=== PATIENT | male | born 1965 ===

== ENCOUNTER 2017-07-18 13:56 | Emergency (ER) | payer MEDICAID ==
[2017-07-18 14:10] VITALS: BP 119/73; RESP 18; O2SAT 97
[2017-07-18] MEDS ORDERED: Sodium Chloride 0.9% 1,000 ML IV STA ×2 (14:33→15:56)
--- NOTE | 2017-07-18 15:06 | ED PDOC ---
HPI: General Adult Time Seen by Provider: 07/18/17 14:20 Chief Complaint (Nursing): Flu-like Symptoms Chief Complaint (Provider): Sore throat, fever History Per: Patient History/Exam Limitations: no limitations Onset/Duration Of Symptoms: Days (1) Have you had recent travel within the past 21 days to any of the following countries: [place], [place], [place] or [place]?: No Current Symptoms Are (Timing): Still Present Additional History Per: Patient Additional Complaint(s): The patient is a 51yo male, presents to the ED for evaluation of cough, sore throat, fever, chills for the past day. Patient reports he feels weak and has not taken any medication for his symptoms. Patient denies any associated vomiting, diarrhea, known sick contacts, recent travels. He denies taking any medications daily at home. Patient offers no additional medical complaints. Past Medical History Reviewed: Historical Data, Nursing Documentation, Vital Signs Vital Signs: Last Vital Signs Temp 101.2 F H 07/18/17 16:13 Pulse 90 07/18/17 16:13 Resp 18 07/18/17 14:07 BP 119/73 07/18/17 14:07 Pulse Ox 97 07/18/17 15:08 - Medical History PMH: No Chronic Diseases - Surgical History Surgical History: No Surg Hx - Family History Family History: States: Unknown Family Hx - Home Medications Home Medications: Ambulatory Orders Medication Instructions Recorded Amoxicillin/Potassium Clav 1 tab PO Q8 #21 tab 11/24/15 [Augmentin 500 mg-125 mg] Guaifenesin [Mucinex] 1,200 mg PO BID #14 ter 11/24/15 Acetaminophen [Acetaminophen Extra 2 tab PO Q6 PRN #24 tablet 07/18/17 Strength] Ibuprofen [Motrin] 600 mg PO Q8 PRN #21 tab 07/18/17 Promethazine/Codeine 5 ml PO Q12 PRN #100 ml 07/18/17 [Codeine/Promethazine 10 MG/5 Ml-6.25 MG/5 Ml] - Allergies Allergies/Adverse Reactions: Allergies Allergy/AdvReac Type Severity Reaction Status Date / Time No Known Allergies Allergy Verified 06/20/16 17:42 Review of Systems ROS Statement: Except As Marked, All Systems Reviewed And Found Negative Constitutional: Positive for: Fever, Chills ENT: Positive for: Throat Pain Gastrointestinal: Negative for: Nausea, Vomiting, Diarrhea Physical Exam - Reviewed Nursing Documentation Reviewed: Yes Vital Signs Reviewed: Yes - Physical Exam Appears: Positive for: Well, Non-toxic, No Acute Distress Head Exam: Positive for: ATRAUMATIC, NORMAL INSPECTION, NORMOCEPHALIC Skin: Positive for: Normal Color, Warm Eye Exam: Positive for: Normal appearance, EOMI, PERRL ENT: Positive for: Pharyngeal Erythema Neck: Positive for: Normal, Supple Cardiovascular/Chest: Positive for: Regular Rate, Rhythm Respiratory: Positive for: Normal Breath Sounds. Negative for: Respiratory Distress Neurologic/Psych: Positive for: Alert, Oriented. Negative for: Motor/Sensory Deficits - Laboratory Results Result Diagrams: 07/18/17 15:02 07/18/17 15:02 - ECG O2 Sat by Pulse Oximetry: 97 (RA) Pulse Ox Interpretation: Normal - Progress ED Course And Treament: cxr: no signs of [place] influenza a/b neg Patient refused strep test NS 1 liter wide open x 2 liters acetaminophen 975mg x 1 ddose repeat temp 101.2 motrin 600mg x 1 dose Medical Decision Making Medical Decision Making: Time: 1430 Impression: URI Plan: -- Labs -- CXR -- Rapid strep -- Rapid Flu Reassess Scribe Attestation: Documented by Barbara Carter acting as a scribe for IDALIA Kaminski Provider Attestation: All medical record entries made by the Scribe were at my direction and personally dictated by me. I have reviewed the chart and agree that the record accurately reflects my personal performance of the history, physical exam, medical decision making, and the department course for this patient. I have also personally directed, reviewed, and agree with the discharge instructions and disposition. Disposition - Clinical Impression Clinical Impression: Influenza-like symptoms - Patient ED Disposition Is Patient to be Admitted: No - Disposition Disposition: Routine/Home Disposition Time: 16:47 Condition: FAIR Additional Instructions: F/U WITH PMD IN 2 DAYS Prescriptions: Acetaminophen [Acetaminophen Extra Strength] 2 tab PO Q6 PRN #24 tablet PRN Reason: Fever >100.4 F Ibuprofen [Motrin] 600 mg PO Q8 PRN #21 tab PRN Reason: Fever >100.4 F Promethazine/Codeine [Codeine/Promethazine 10 MG/5 Ml-6.25 MG/5 Ml] 5 ml PO Q12 PRN #100 ml PRN Reason: Cough Instructions: Viral Syndrome (ED) Forms: [employer] ([place]), [facility] ED School/Work Excuse
[2017-07-18 15:18] LABS: BLOOD UREA NITROGEN 16 mg/dl (9-20); CALCIUM 8.9 mg/dL (8.4-10.2); CARBON DIOXIDE 23 mmol/L (22-30); CHLORIDE 102 mmol/L (98-107); GFR AFRICAN-AMERICAN > 60; GLUCOSE,RANDOM 103 mg/dL (75-110); SODIUM 134 mmol/l (132-148)
[2017-07-18 15:20] LABS: BASO % 0.6 % (0.0-2.0); EOS % 0.7 % (0.0-4.0); HEMATOCRIT 41.5 % (35.0-51.0); LYMPH # 0.5 K/uL (1.0-4.3); LYMPH % 13.8 % (20.0-40.0); MEAN CELL VOLUME 85.6 fl (80.0-94.0); MEAN CORPUSCULAR HEMOGLOBIN 30.6 pg (27.0-31.0); MEAN CORPUSCULAR HGB CONC 35.7 g/dL (33.0-37.0); MEAN PLATELET VOLUME 8.2 fl (7.2-11.7); MONO # 0.5 K/uL (0.0-0.8); MONO % 16.7 % (0.0-10.0); NEUT # 2.2 K/uL (1.8-7.0); NEUT % 68.2 % (50.0-75.0); NRBC % 0.1 % (0.0-0.0); RED CELL DISTRIBUTION WIDTH 12.2 % (11.5-14.5); WHITE BLOOD COUNT 3.3 K/uL (4.8-10.8)
[2017-07-18 15:21] LABS: POTASSIUM 4.9 MMOL/L (3.6-5.0)
--- NOTE | 2017-07-18 15:41 | RAD ---
HISTORY: cough COMPARISON: No prior. TECHNIQUE: Chest PA and lateral FINDINGS: LUNGS: The lungs are well inflated and clear. PLEURA: No significant pleural effusion identified. No pneumothorax apparent. CARDIOVASCULAR: Normal. OSSEOUS STRUCTURES: No significant abnormalities. VISUALIZED UPPER ABDOMEN: Normal. OTHER FINDINGS: None. IMPRESSION: No active pulmonary disease.
[2017-07-18 16:13] VITALS: PULSE 90
[2017-07-18 17:06] VITALS: TEMP 99.4
== END 2017-07-18 17:09 | disposition home or self-care (01) ==
LOC: H.ER 13:56
DX: B34.9 Viral infection, unspecified (principal)
CPT/HCPCS: 71020; 80048; 85025; 87804; 96360; 96361; 99283; J7040

== ENCOUNTER 2017-10-05 09:19 | Inpatient (IN) | payer MEDICAID ==
[2017-10-05 09:22] VITALS: BMI 30.4
[2017-10-05] MEDS ORDERED: Sodium Chloride 0.9% 1,000 ML IV STA (09:46)
--- NOTE | 2017-10-05 10:02 | ED PDOC ---
HPI: Psych/Substance Abuse Time Seen by Provider: 10/05/17 09:24 Chief Complaint (Nursing): Substance Abuse Chief Complaint (Provider): Overdose History Per: Patient, EMS History/Exam Limitations: no limitations Onset/Duration Of Symptoms: Days (today) Current Symptoms Are (Timing): Still Present Additional Complaint(s): Pt. found slumped over as seen by the girlfriend who saw it on a video camera. Police called and gave pt. 2 narcan inhaled and oxygen. Pt. responded right away and is fully communicative. Pt. states he did 2 bags of heroine. Pt. states he is not suicidal or homicidal. Has nausea and a slight frontal headache. No numbness, tingles, neck pain, weakness, dizziness, abd pain, chest pain. No fever. Has slight nausea. No other drugs or etoh. Past Medical History Reviewed: Nursing Documentation, Vital Signs Vital Signs: Last Vital Signs Temp 97 F L 10/05/17 09:21 Pulse 91 H 10/05/17 09:21 Resp BP 126/74 10/05/17 09:21 Pulse Ox 98 10/05/17 09:21 - Medical History PMH: No Chronic Diseases Denies: Chronic Kidney Disease - Surgical History Surgical History: No Surg Hx - Family History Family History: States: Unknown Family Hx - Living Arrangements Living Arrangements: With Family - Social History Alcohol: None Drugs: Opiates - Home Medications Home Medications: Ambulatory Orders Medication Instructions Recorded Guaifenesin [Mucinex] 1,200 mg PO BID #14 ter 11/24/15 Acetaminophen [Acetaminophen Extra 2 tab PO Q6 PRN #24 tablet 07/18/17 Strength] Promethazine/Codeine 5 ml PO Q12 PRN #100 ml 07/18/17 [Phenergan/Codeine Oral Syrup] Moxifloxacin [Avelox] 400 mg PO DAILY #5 tab 07/24/17 - Allergies Allergies/Adverse Reactions: Allergies Allergy/AdvReac Type Severity Reaction Status Date / Time No Known Allergies Allergy Verified 10/05/17 09:23 Review of Systems ROS Statement: Except As Marked, All Systems Reviewed And Found Negative Gastrointestinal: Positive for: Nausea Neurological: Positive for: Headache Physical Exam - Reviewed Nursing Documentation Reviewed: Yes Vital Signs Reviewed: Yes - Physical Exam Appears: Positive for: Non-toxic, No Acute Distress Head Exam: Positive for: ATRAUMATIC, NORMAL INSPECTION, NORMOCEPHALIC Skin: Positive for: Normal Color, Warm, DRY Eye Exam: Positive for: EOMI, Normal appearance, PERRL ENT: Positive for: Normal ENT Inspection Neck: Positive for: Normal, Painless ROM Cardiovascular/Chest: Positive for: Regular Rate, Rhythm Respiratory: Positive for: CNT, Normal Breath Sounds Gastrointestinal/Abdominal: Positive for: Normal Exam, Bowel Sounds, Soft. Negative for: Tenderness Back: Positive for: Normal Inspection. Negative for: L CVA Tenderness, R CVA Tenderness Extremity: Positive for: Normal ROM. Negative for: Tenderness, Pedal Edema Neurologic/Psych: Positive for: Alert, college administrator II-XII, Oriented. Negative for: Motor/Sensory Deficits, Aphasia, Facial Droop - Laboratory Results Result Diagrams: 10/05/17 10:23 10/05/17 10:23 Interpretation Of Abn Labs: opiate pos - ECG ECG: Positive for: Interpreted By Me, Viewed By Me ECG Rhythm: Positive for: Normal QRS, Normal ST Segment, Sinus Rhythm O2 Sat by Pulse Oximetry: 98 Pulse Ox Interpretation: Normal - Progress ED Course And Treament: 1111: Stable. Crisis saw pt. Will admit. Pt. is medically stable for psych eval. Disposition - Clinical Impression Clinical Impression: Depression, Heroin abuse - Patient ED Disposition Is Patient to be Admitted: Yes Counseled Patient/Family Regarding: Studies Performed, Diagnosis - Disposition Disposition Time: 11:12 Condition: FAIR - Pt Status Changed To: Hospital Disposition Of: Inpatient - Admit Certification Admit to Inpatient:: After my assessment, the patient will require hospitalization for at least two midnights. This is because of the severity of symptoms shown, intensity of services needed, and/or the medical risk in this patient being treated as an outpatient. - POA Present On Arrival: None
[2017-10-05 10:33] LABS: BASO % 0.5 % (0.0-2.0); EOS # 0.1 K/uL (0.0-0.7); EOS % 1.5 % (0.0-4.0); HEMATOCRIT 39.4 % (35.0-51.0); LYMPH # 0.9 K/uL (1.0-4.3); LYMPH % 23.9 % (20.0-40.0); MEAN CORPUSCULAR HEMOGLOBIN 30.3 pg (27.0-31.0); MEAN CORPUSCULAR HGB CONC 34.4 g/dL (33.0-37.0); MEAN PLATELET VOLUME 7.7 fl (7.2-11.7); MONO # 0.3 K/uL (0.0-0.8); MONO % 8.2 % (0.0-10.0); NEUT # 2.4 K/uL (1.8-7.0); NEUT % 65.9 % (50.0-75.0); RED CELL DISTRIBUTION WIDTH 12.9 % (11.5-14.5); WHITE BLOOD COUNT 3.7 K/uL (4.8-10.8)
[2017-10-05 10:51] LABS: ALB/GLOB RATIO 1.1 (1.0-2.1); ALCOHOL SERUM < 10 mg/dl (0-10); ALKALINE PHOSPHATASE 51 U/L (38-126); ALT/SGPT 50 U/L (21-72); AST/SGOT 42 U/L (17-59); BILIRUBIN,TOTAL 0.5 mg/dl (0.2-1.3); BLOOD UREA NITROGEN 17 mg/dl (9-20); CALCIUM 8.4 mg/dL (8.4-10.2); CARBON DIOXIDE 25 mmol/L (22-30); CHLORIDE 104 mmol/L (98-107); GFR AFRICAN-AMERICAN > 60; GLUCOSE,RANDOM 168 mg/dL (75-110); LIPASE 103 U/L (23-300); POTASSIUM 3.6 MMOL/L (3.6-5.0); SODIUM 139 mmol/l (132-148); TOTAL PROTEIN 7.3 G/DL (6.3-8.2)
[2017-10-05 11:50] VITALS: O2SAT 100
--- NOTE | 2017-10-05 13:28 | PCM.PSYCH ---
Initial Psychiatric Evaluation - Initial Psychiatric Evaluation Type of Admission: Voluntary Chief Complaint (in patient's own words): I was depressed for a month i am having problems with my girlfriend Patient's Reaction to Hospitalization: pt signed voluntary requesting help History of Present Illness and Precipitating Events: pt with previous psychiatric diagnosis of bipolar disorder and opiate dependence , non compliant with medications or follow up reportedly pt has been feeling increasingly depressed for the past month , due to loosing his job and increasing conflict with girlfriend, pt started to have decreased sleep, decreased appetite with 7 lbs loss pt started using heroin intra nasal daily , on day of evaluation pt used two bags, found by family lost conciousness pt was brought to er for evaluation pt denied any current suicidal or homicidal ideations, denied psychotic symptoms reported using cannabis and alcohol occasionaly Past Psychiatric History - Past Psychiatric History Explanation of prior treatment: pt poor historian reported unspecified number of hospitalizations since age 11 for depression also reported multiple inpatient rehabs denied previous suicidal attempts History of Abuse: denied History of ETOH/Drug Use: occasional use of alcohol History of Family Illness: denied Pertinent Medical Hx (Current Medical&Sleep Prob, Allergies): Allergies Allergy/AdvReac Type Severity Reaction Status Date / Time No Known Allergies Allergy Verified 10/05/17 09:23 No Known Home Med 10/05/17 denied any current medical problems Mental Status Examination - Personal Presentation Personal Presentation: Looks stated age Additional comments: unkempt, poor eye contact - Affect Affect: Depressed - Motor Activity Motor Activity: Psychomotor Retardation - Reliability in Providing Information Reliability in Providing Information: Poor, due to altered mood - Mood Mood: Depressed, Anxious - Formal Thought Process Formal Thought Process: Circumstantial - Hallucinations/Delusions Additional comments: pt denied perceptual disturbances, non elicited - Obsessions/Compulsions Obsessions: No Compulsions: No - Cognitive Functions Orientation: Person, Place Sensorium: Drowsy Attention/Concentration: Easily distracted Abstract Thinking: [place] Judgement: Imparied, as evidence by: Poor judgement, Imparied, as evidence by: Lack of insight into illness Memory: Recent intact, as evidence by: Ability to recall events of the day - Risk Risk: Withdrawal, Diminished functioning - Strength & Assets Inventory Strength & Assets Inventory: Employment history - Limitations Additional comments: poor insight and poor compliance DSM 5 DX - DSM 5 DSM 5 Diagnosis: 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
[2017-10-05] MEDS ORDERED: Alum-Mag Hydrox-Simethicone Susp (30 mL) PO PRN (13:30)
[2017-10-05] MEDS ORDERED: Magnesium Hydroxide Susp 30 ml UD PO PRN (13:30)
[2017-10-05] MEDS ORDERED: DiphenhydrAMINE 50 mg/ml Inj IM PRN (13:30)
--- NOTE | 2017-10-05 14:37 | PCM.BM ---
Treatment Plan Problems - Problems identified on initial assessmt Medication nonadherence Date Initiated: 10/05/17 Time Initiated: 14:35 Assessment reference: NA Status: Active Hopelessness/Helplessness Assessment reference: NA Status: Active [place] Coping Assessment reference: NA Status: Active Treatment assets and liabiliti Patient Assests: cooperative, ADL independent, physically healthy Patient Liabilities: substance abuse - Milieu Protocol Maintain good personal hygiene: daily Encourage regular showers, daily Remind patient to perform daily oral care, daily Assist patient to perform ADL's Maintain personal safety: daily Educate patient to report safety concerns to staff, daily Monitor environment for contraband/sharps, every shift Educate patient to report safety concerns to staff, every shift Monitor environment for contraband/sharps Medication safety: Monitor for expected outcome, potential side effects: daily, every shift, Assess barriers to learning: daily, every shift, Assess readiness for medication education: daily, every shift Milieu Narrative: start pt on clonidine protocol for opiate withdrawal monitor pt for symptoms and signs of withdrawal start seroquel 100mg qhs and uptitrate gradually motivational and group therapy referral to rehab on discharge Discharge/Continuing Care - Treatment Team Participation Patient/Family/SO Statement: start pt on clonidine protocol for opiate withdrawal monitor pt for symptoms and signs of withdrawal start seroquel 100mg qhs and uptitrate gradually motivational and group therapy referral to rehab on discharge
[2017-10-05 15:17] LABS: T4 14.6 ug/dl (5.5-11.0)
[2017-10-05 15:31] LABS: THYROID STIMULATING HORMONE 4.05 mIU/ML (0.46-4.68)
--- NOTE | 2017-10-05 21:50 | CARD ---
APPROVED REPORT EKG Measurement Heart [id number] <Conclusion> Sinus rhythm with 1st degree AV block Otherwise normal ECG
[2017-10-06 07:46] LABS: CHOLESTEROL 141 mg/dL (0-199)
[2017-10-06] MEDS: Multivitamin With Minerals Tab PO SCH (11:27)
--- NOTE | 2017-10-06 13:42 | PCM.PYCHPN ---
Psychiatric Progress Note - Psychiatric Progress Note Patient seen today, length of contact: PT EVALUATED DISCUSSED WITH TEAM CHART REVIEWED Patient Chief Complaint: I AM AFRAID TO TAKE MEDICINE THAT MAKES ME GROGGY Problems Identified/Issues Discussed: PT ON EVALUATION, IRRITABLE, ARGUMENTATIVE REFUSING MEDICATIONS, REPORTED TO WORRY ABOUT SIDE EFFECTS PT EDUCATED ABOUT NEED FOR MOOD STABILIZER, AGREED TO BE STARTED ON ABILIFY PT HAS LIMITED INSIGHT INTO ILLNESS, AGREED TO BE REFFERED TO INPATIENT REHAB NO REPORTED CHANGES IN SLEEP OR APPETITE DENIED S/H I DENIED PSYCHOTIC SYMPTOMS Medical Problems: p DSM 5 Symptoms Update: OPIATE INDUCED MOOD DISORDER WITH DEPRESSIVE FEATURES HISTORY OF BIPOLAR DISORDER Medication Change: Yes (START ABILIFY) Medical Record Reviewed: Yes Mental Status Examination - Cognitive Function Orientation: Person, Place Attention: WNL Concentration: Poor Association: WNL Fund of Knowledge: Poor Decription of patient's judgement and insights: FAIR INSIGHT AND POOR JUDGMENT - Mood Mood: Depressed, Anxious - Affect Affect: Depressed - Speech Speech: Appropriate - Formal Thought Process Formal Thought Process: Circumstantial Psychotic Thoughts and Behaviors: PT DENIED PSYCHOTIC SYMPTOMS NON ELICITED - Suicidal Ideation Suicidal Ideation: No - Homicidal Ideation Homicidal Ideation: No Goal/Treatment Plan - Goal/Treatment Plan Need for Continued Stay: Discharge may exacerbated symptoms Progress Toward Problem(s) and Goals/Treatment Plan: continue with clonidine protocol for opiate withdrawal monitor pt for symptoms and signs of withdrawal discontinue seroquel start abilify and upptitrate gradually motivational and group therapy referral to rehab on discharge
--- NOTE | 2017-10-07 09:09 | PCM.PYCHPN ---
Psychiatric Progress Note - Psychiatric Progress Note Patient seen today, length of contact: Patient evaluated, case discussed w/ team , chart reviewed Patient Chief Complaint: "I'm alright" Problems Identified/Issues Discussed: Patient reports that he continues to have opioid w/drawal symptoms including headache, chills, sweating, body aches, GI disturbances. We discussed continued titration of Abilify for mood stabilization but he was not agreeable at this time. He denies AH/VH/SI/HI. He continues to have constricted affect. Medication Change: No Medical Record Reviewed: Yes Mental Status Examination - Cognitive Function Orientation: Person, Place, Situation, Time Memory: Intact Attention: WNL Concentration: Poor Association: WNL Fund of Knowledge: Poor Decription of patient's judgement and insights: Fair I/J - Mood Mood: Depressed - Affect Affect: Constricted - Speech Speech: Appropriate - Formal Thought Process Formal Thought Process: No Impairment Psychotic Thoughts and Behaviors: No AH/VH/paranoia/delusions - Suicidal Ideation Suicidal Ideation: No - Homicidal Ideation Homicidal Ideation: No Goal/Treatment Plan - Goal/Treatment Plan Need for Continued Stay: Remain at risks for inpatient hospitalization, Discharge may exacerbated symptoms Progress Toward Problem(s) and Goals/Treatment Plan: Opiate induced mood disorder w/ depressive features; h/o Bipolar disorder -Continue Abilify 5 mg PO Daily; patient not agreeable to increasing the dose at this time -Individual and group therapy -Clonidine for opioid w/drawal -No 1:1 indicated at this time -Disposition planning -Psychoeducation re: substance abuse Estimated Date of D/C: 10/09/17
[2017-10-07] MEDS: Multivitamin With Minerals Tab PO SCH (12:32)
--- NOTE | 2017-10-08 08:22 | PCM.PYCHPN ---
Psychiatric Progress Note - Psychiatric Progress Note Patient seen today, length of contact: Patient evaluated, case discussed w/ team , chart reviewed Patient Chief Complaint: "I'm alright" Problems Identified/Issues Discussed: Patient continues to have some mild symptoms of opioid w/drawal. He reports that his mood is improving. We discussed continued titration of Abilify for mood stabilization but he was not agreeable at this time. He denies AH/VH/SI/ HI. Medication Change: No Medical Record Reviewed: Yes Mental Status Examination - Cognitive Function Orientation: Person, Place, Situation, Time Memory: Intact Attention: WNL Concentration: WNL Association: WNL Fund of Knowledge: [facility] Decription of patient's judgement and insights: Fair I/J - Mood Mood: Depressed - Affect Affect: Constricted - Speech Speech: Appropriate - Formal Thought Process Formal Thought Process: No Impairment Psychotic Thoughts and Behaviors: No AH/VH/paranoia/delusions - Suicidal Ideation Suicidal Ideation: No - Homicidal Ideation Homicidal Ideation: No Goal/Treatment Plan - Goal/Treatment Plan Need for Continued Stay: Remain at risks for inpatient hospitalization, Discharge may exacerbated symptoms Progress Toward Problem(s) and Goals/Treatment Plan: Opiate induced mood disorder w/ depressive features; h/o Bipolar disorder -Continue Abilify 5 mg PO Daily; patient not agreeable to increasing the dose at this time -Individual and group therapy -Clonidine for opioid w/drawal -No 1:1 indicated at this time -Disposition planning -Psychoeducation re: substance abuse Estimated Date of D/C: 10/09/17
[2017-10-08] MEDS: Multivitamin With Minerals Tab PO SCH (09:15)
[2017-10-09] MEDS: Multivitamin With Minerals Tab PO SCH (09:58)
--- NOTE | 2017-10-09 13:32 | PCM.PYCHPN ---
Psychiatric Progress Note - Psychiatric Progress Note Patient seen today, length of contact: Patient evaluated, case discussed w/ team , chart reviewed Patient Chief Complaint: I have a very supportive family and I NEED to take care of myself Problems Identified/Issues Discussed: PT ON EVALUATION, calmer, more cooperative, showing better insight into his illness, pt agreed to be reffered to rehab program in discharge reported better mood denied any current s/h i denied perceptual disturbances, no reported side effects of medications Medical Problems: non non reported DSM 5 Symptoms Update: opiate induced mood disorder with depressive features opiate dependence hx of bipolar disorder Medication Change: No Medical Record Reviewed: Yes Mental Status Examination - Cognitive Function Orientation: Person, Place, Situation, Time Memory: Intact Attention: WNL Concentration: WNL Association: WNL Fund of Knowledge: WNL - Mood Mood: Depressed, Neutral - Affect Affect: Broad, Constricted - Speech Speech: Appropriate - Formal Thought Process Formal Thought Process: No Impairment - Suicidal Ideation Suicidal Ideation: No - Homicidal Ideation Homicidal Ideation: No Goal/Treatment Plan - Goal/Treatment Plan Need for Continued Stay: Remain at risks for inpatient hospitalization, Discharge may exacerbated symptoms Progress Toward Problem(s) and Goals/Treatment Plan: pt presenting with better mood, ,continue with abilify 5mg motivational and group therapy referral to rehab on discharge Estimated Date of D/C: 10/10/17
[2017-10-10 09:06] VITALS: BP 111/75; PULSE 71; RESP 18; TEMP 97
[2017-10-10] MEDS: Multivitamin With Minerals Tab PO SCH (10:00)
--- NOTE | 2017-10-10 12:24 | PCM.PYCHDC ---
Mental Status Examination - Mental Status Examination Orientation: Person, Place, Situation Memory: Intact Mood: Neutral Affect: Broad Speech: Appropriate Attention: WNL Concentration: WNL Association: WNL Fund of Knowledge: WNL Formal Thought Process: No Impairment Description of patient's judgement and insight: FAIR INSIGHT AND POOR JUDGMENT Psychotic Thoughts and Behaviors: PT DENIED PSYCHOTIC SYMPTOMS NON ELICITED Suicidal Ideation: No Current Homicidal Ideation?: No Discharge Summary - Discharge Note Reason for Hospitalization: pt signed voluntary requesting help pt with previous psychiatric diagnosis of bipolar disorder and opiate dependence , non compliant with medications or follow up reportedly pt has been feeling increasingly depressed for the past month , due to loosing his job and increasing conflict with girlfriend, pt started to have decreased sleep, decreased appetite with 7 lbs loss pt started using heroin intra nasal daily , on day of evaluation pt used two bags, found by family lost conciousness pt was brought to er for evaluation pt denied any current suicidal or homicidal ideations, denied psychotic symptoms reported using cannabis and alcohol occasionaly Consultations:: List each consultation separately and include: 1. Reason for request. 2. Findings. 3. Follow-up Consultations: family practice Summary of Hospital Course include:: 1. Description of specific treatment plan utilized for patients during their course of treatmen. 2. Summarize the time- course for resolution of acute symptoms and/or regressed behaviors. 3. Describe issues identified and worked on during hospitalization. 4. Describe medication utilized. 5. Describe medical problems identified and treated. 6. Reassessment of suicide risk Summary of Hospital Course: pt on admission was started on opiate withdrawal protocol abilify 5m for mood stabilization CBT group therapy and motivational therapy provided pt was educated about using heroin on discharge the possible risk of overdose pt on discharge denied suicidal or homicidal ideations denied perceptual disturbances, mood was stable overdose - Diagnosis (1) Bipolar 1 disorder Current Visit: Yes Status: Acute - Final Diagnosis (DSM 5) Condition upon Discharge: FAIR Disposition: HOME/ ROUTINE Follow-up Treatment Plan: pt presenting with better mood, ,continue with abilify 5mg motivational and group therapy referral to rehab on discharge Prescriptions/Medication Reconciliation: ARIPiprazole [Abilify] 5 mg PO DAILY 30 Days #30 tab - Antipsychotic Medications Pt discharged on 2 or more routine antipsychotic medications: No
== END 2017-10-10 13:34 | disposition home or self-care (01) | DRG 430 ==
LOC: H.ER 09:19 → H.ERHOLD 11:13 → H.PSYCH 12:02
PROVIDERS: ADMIT Psychiatry & Neurology Psychiatry; ATTEND Psychiatry & Neurology Psychiatry
PROC: GZHZZZZ Group Psychotherapy (ICD-10-PCS; principal; 2017-10-05)
PROC: HZ57ZZZ Individual Psychotherapy for Substance Abuse Treatment, Motivational Enhancement (ICD-10-PCS; 2017-10-05)
PROC: HZ56ZZZ Individual Psychotherapy for Substance Abuse Treatment, Psychoeducation (ICD-10-PCS; 2017-10-05)
PROC: HZ96ZZZ Pharmacotherapy for Substance Abuse Treatment, Clonidine (ICD-10-PCS; 2017-10-05)
DX: F31.9 Bipolar disorder, unspecified (principal); Z91.14 Patient's other noncompliance with medication regimen; F11.23 Opioid dependence with withdrawal; Z91.19 Patient's noncompliance with other medical treatment and regimen